=== PATIENT | female | born 1965 | race Caucasian/White ===

== ENCOUNTER → 2016-07-27 | Outpatient (CLI) | payer BC | END | disposition home or self-care (01) | LOC: LABWHC1 08:32 | PROVIDERS: ATTEND Obstetrics & Gynecology | DX: E78.5 Hyperlipidemia, unspecified (principal) | CPT/HCPCS: 36415; 80061; 84439; 84443 ==

== ENCOUNTER → 2016-08-02 | Outpatient (CLI) | payer BC ==
--- NOTE | 2016-08-05 09:23 | MM ---
Reason for exam: screening (asymptomatic). Last mammogram was performed 2 years and 9 months ago. History: Family history of breast cancer in maternal cousin at age 22. Benign US left CoreBiopsy of the left breast, October 02, 2006. Taking hormonal contraceptives for 18 years beginning at age 25. Physical Findings: A clinical breast exam by your physician is recommended on an annual basis and results should be correlated with mammographic findings. MG Screening Mammo w CAD Bilateral CC and MLO view(s) were taken. Prior study comparison: November 10, 2013, bilateral MG screening mammo w CAD. July 02, 2010, bilateral digital screening mammo w/CAD. The breast tissue is heterogeneously dense. This may lower the sensitivity of mammography. Finding: There are typically benign calcifications in both breasts. No significant changes in finding since November 10, 2013 and July 02, 2010. ASSESSMENT: Benign, BI-RAD 2 RECOMMENDATION: Routine screening mammogram of both breasts in 1 year.
== END | disposition home or self-care (01) ==
LOC: RADMAMWWP 16:41
PROVIDERS: ATTEND Obstetrics & Gynecology
DX: Z12.31 Encounter for screening mammogram for malignant neoplasm of breast (principal)

== ENCOUNTER → 2017-07-08 | Outpatient (CLI) | payer BC ==
[2017-07-08 18:24] LABS: T4, Free (Free Thyroxine) 0.59 ng/dL (0.78-2.19)
== END | disposition home or self-care (01) ==
LOC: LABWHC1 16:53
PROVIDERS: ATTEND Obstetrics & Gynecology
DX: E03.9 Hypothyroidism, unspecified (principal); N91.2 Amenorrhea, unspecified
CPT/HCPCS: 36415; 82670; 83001; 84439; 84443

== ENCOUNTER → 2018-02-18 | Outpatient (CLI) | payer BC ==
--- NOTE | 2018-02-19 14:01 | MM ---
Reason for exam: screening (asymptomatic). Last mammogram was performed 1 year and 7 months ago. History: Family history of breast cancer in maternal cousin at age 22. Benign US left CoreBiopsy of the left breast, October 02, 2006. Taking hormonal contraceptives for 18 years beginning at age 25. Physical Findings: A clinical breast exam by your physician is recommended on an annual basis and results should be correlated with mammographic findings. MG Screening Mammo w CAD Bilateral CC and MLO view(s) were taken. Prior study comparison: August 02, 2016, bilateral MG screening mammo w CAD. November 10, 2013, bilateral MG screening mammo w CAD. The breast tissue is heterogeneously dense. This may lower the sensitivity of mammography. There is no discrete abnormality. ASSESSMENT: Negative, BI-RAD 1 RECOMMENDATION: Routine screening mammogram of both breasts in 1 year.
== END | disposition home or self-care (01) ==
LOC: RADMAMWWP 07:15
PROVIDERS: ATTEND Obstetrics & Gynecology
DX: Z12.31 Encounter for screening mammogram for malignant neoplasm of breast (principal)
CPT/HCPCS: 77067

== ENCOUNTER → 2019-11-24 | Outpatient (CLI) | payer BC ==
--- NOTE | 2019-11-25 10:44 | MM ---
Reason for exam: screening (asymptomatic). Last mammogram was performed 1 year and 9 months ago. History: Family history of breast cancer in maternal cousin at age 22. Benign US left CoreBiopsy of the left breast, October 02, 2006. Took hormonal contraceptives for 18 years beginning at age 25. Physical Findings: A clinical breast exam by your physician is recommended on an annual basis and results should be correlated with mammographic findings. MG Screening Mammo w CAD Bilateral CC and MLO view(s) were taken. Prior study comparison: February 18, 2018, bilateral MG screening mammo w CAD. August 02, 2016, bilateral MG screening mammo w CAD. The breast tissue is heterogeneously dense. This may lower the sensitivity of mammography. Stable grouped calcifications anteriorly on the right. No significant changes when compared with prior studies. ASSESSMENT: Negative, BI-RAD 1 RECOMMENDATION: Routine screening mammogram of both breasts in 1 year.
== END | disposition home or self-care (01) ==
LOC: RADMAMWWP 07:27
PROVIDERS: ATTEND Obstetrics & Gynecology
DX: Z12.31 Encounter for screening mammogram for malignant neoplasm of breast (principal)
CPT/HCPCS: 77067

== ENCOUNTER → 2020-07-07 | Outpatient (CLI) | payer BC ==
--- NOTE | 2020-07-07 16:02 | US ---
EXAMINATION TYPE: US thyroid st tissue head/neck DATE OF EXAM: 07/07/2020 COMPARISON: NONE CLINICAL HISTORY: E03.9 Hypothyroidism. Takes thyroid medication. GLAND SIZE: Right Lobe: 2.7 x 0.8 x 1.6 cm Overall Parenchyma: heterogenous Left Lobe: 2.5 x x1.0 x 1.2 cm Overall Parenchyma: heterogeneous Isthmus Thickness: 0.2 cm NODULES RIGHT: # of nodules measured on right: no discreet nodule is seen LEFT: # of nodules measured on left: no discreet nodule is seen ISTHMUS: # of nodules measured in the isthmus: 0 Bilateral neck scanned: no evidence of lymphadenopathy. IMPRESSION: No distinct abnormality seen.
== END | disposition home or self-care (01) ==
LOC: RADUSWWP 14:47
PROVIDERS: ATTEND Family Medicine
DX: E03.9 Hypothyroidism, unspecified (principal)
CPT/HCPCS: 76536

== ENCOUNTER → 2022-02-06 | Outpatient (CLI) | payer BC ==
--- NOTE | 2022-02-07 06:58 | BD ---
EXAMINATION TYPE: Axial Bone Density DATE OF EXAM: 02/06/2022 COMPARISON: NONE CLINICAL HISTORY: 56 years year old Female. ICD-10 CODE: M95.1 POST MENOPAUSAL SYMPTOMS Height: 5 FT 3 IN Weight: 187 FRAX RISK QUESTIONS: Alcohol (3 or more units per day): NO Family History (Parent hip fracture): NO Glucocorticoids (More than 3mos): NO (Ex: prednisone, prednisolone, methylprednisolone, dexamethasone, and hydrocortisone). History of Fracture in Adulthood: NO Secondary Osteoporosis: 1. Type 1 Diabetes: NO 2. Hyperthyroidism: NO 3. Menopause before 45: NO 4. Malnutrition: NO 5. Chronic liver disease: NO Rheumatoid Arthritis: NO Current Tobacco Use: NO RISK FACTORS HISTORY OF: Surgery to Spine/Hip(right/left)/Wrist (right/left): NO Family History of Osteoporosis: NO Active: YES Diet low in dairy products/other sources of calcium: NO Postmenopausal woman: AGE 52 Take estrogen and/or progesterone medications: NO Lost more than 2 inches in height since high school: NO Frequent falls: NO Poor Health: GOOD Hyperparathyroidism: NO Adrenal Insufficiency: NO MEDICATIONS: Thyroid Medications: YES Which medication: LEVOTHYROXINE How Long: APPROX 2 YEARS Additional Medications: LEVOTHYROXINE Additional History: EXAM MEASUREMENTS: Bone mineral densitometry was performed using the [employer] System. Bone mineral density as measured about the Lumbar spine is: ----- L1-L4(G/cm2): 1.135 T Score Values are as follows: ----- L1: -0.4 ----- L2: -1.0 ----- L3: -0.5 ----- L4: 0.1 ----- L1-L4: -0.4 BASELINE Bone mineral density about the R hip (g/cm2): 0.822 Bone mineral density about the L hip (g/cm2): 0.894 T Score values are as follows: -----R Neck: -1.6 -----L Neck: -1.0 -----R Total: -1.0 -----L Total: -0.4 BASELINE FRAX%s: The graph provided illustrates a 6.5 % chance for a major osteoporotic fx and a 0.5 % chance for the hips probability for fx in 10 years time. IMPRESSION: Osteopenia (T Score between -2.5 and -1). There is slightly increased risk of fracture and the patient may be considered for treatment. Re-Screen 2-5 years. NOTE: T-SCORE=SD OF THE YOUNG ADULT MEAN.
--- NOTE | 2022-02-07 08:39 | MM ---
Reason for Exam: Screening (asymptomatic). Last mammogram was performed 2 year(s) and 2 month(s) ago. Patient History: Menarche at age 14. First Full-Term at age 24. [employer]. Hormonal Contraceptives, starting at age 25 for 18 years. 10/02/2006, Benign Core Biopsy on the left side. Maternal cousin had breast cancer, age 22. Mother had breast cancer at or over age 50. Risk Values: Sharlene 5 year model risk: 2.7%. NCI Lifetime model risk: 17.6%. Prior Study Comparison: 08/02/2016 Bilateral Screening Mammogram, [facility]. 02/18/2018 Bilateral Screening Mammogram, [facility]. 11/24/2019 Bilateral Screening Mammogram, [facility]. Tissue Density: The breast tissue is heterogeneously dense. This may lower the sensitivity of mammography. Findings: Analyzed By CAD. There is no suspicious group of microcalcifications or new suspicious mass in either breast. No significant change from prior exams. Overall Assessment: Negative, BI-RAD 1 Management: Screening Mammogram of both breasts in 1 year. A clinical breast exam by your physician is recommended on an annual basis and results should be correlated with mammographic findings. Electronically signed and approved by: Donnell Jay D.O.
== END | disposition home or self-care (01) ==
LOC: RADMAMWWP 15:51
PROVIDERS: ATTEND Obstetrics & Gynecology
DX: Z12.31 Encounter for screening mammogram for malignant neoplasm of breast (principal); M85.89 Other specified disorders of bone density and structure, multiple sites; Z78.0 Asymptomatic menopausal state; Z80.3 Family history of malignant neoplasm of breast
CPT/HCPCS: 77063; 77067; 77080

== ENCOUNTER → 2022-04-13 | Outpatient (CLI) | payer BC ==
[2022-04-13 19:56] LABS: ALT 43 U/L (8-44); AST 25 U/L (13-35); African American GFR (CKD) 96.2 (60.0-200.0); Albumin 4.2 g/dL (3.8-4.9); Albumin/Globulin Ratio 1.83 (1.60-3.17); Alkaline Phosphatase 76 U/L (41-126); BUN/Creat Ratio 10.63 Ratio (12.00-20.00); Blood Urea Nitrogen 8.5 mg/dL (9.0-27.0); Calcium 9.2 mg/dL (8.7-10.3); Carbon Dioxide 26.5 mmol/L (20.0-27.5); Chloride 109 mmol/L (96-109); Chol/HDL Ratio 3.84 Ratio; Globulin 2.3 g/dL (1.6-3.3); Glucose 91 mg/dL (70-110); Iron 64 ug/dL (50-170); LDL Cholesterol,Calculated 129.5 mg/dL (0.0-131.0); Potassium 4.2 mmol/L (3.5-5.5); Sodium 145 mmol/L (135-145); Total Protein 6.5 g/dL (6.2-8.2)
== END | disposition home or self-care (01) ==
LOC: LABWHC1 11:52
PROVIDERS: ATTEND Family Medicine
DX: Z00.01 Encounter for general adult medical examination with abnormal findings (principal); E03.9 Hypothyroidism, unspecified; D50.9 Iron deficiency anemia, unspecified
CPT/HCPCS: 36415; 80053; 80061; 83540; 84439; 84481

== ENCOUNTER → 2024-04-22 | Outpatient (CLI) | payer BC ==
--- NOTE | 2024-04-25 14:51 | MM ---
Reason for Exam: Screening (asymptomatic). Last mammogram was performed 2 year(s) and 3 month(s) ago. Patient History: Menarche at age 14. First Full-Term at age 24. Postmenopausal. [employer]kenazi [employer]. Hormonal Contraceptives, starting at age 25 for 18 years. 10/02/2006, Benign Core Biopsy on the left side. Maternal cousin had breast cancer, age 22. Mother had breast cancer, age 70. Risk Values: Sharlene 5 year model risk: 2.9%. NCI Lifetime model risk: 16.9%. Prior Study Comparison: 02/18/2018 Bilateral Screening Mammogram, [facility]. 11/24/2019 Bilateral Screening Mammogram, [facility]. 02/06/2022 Bilateral MG 3D screening mammo w/cad, [facility]. Tissue Density: The breasts are heterogeneously dense, which may obscure small masses. Findings: Analyzed By CAD. The pattern is symmetrical. There are developing punctate calcifications within the upper outer right breast. Additional workup is recommended. Left breast:No suspicious groups of microcalcifications, spiculated or lobular masses, architectural distortion or other secondary signs of malignancy are mammographically apparent. Overall Assessment: Incomplete: need additional imaging evaluation, BI-RAD 0 Management: Diagnostic Mammogram of the right breast. A negative mammogram report should not preclude additional follow up of suspicious palpable abnormalities. Patient should continue monthly self breast exam. A clinical breast exam by your physician is recommended on an annual basis and results should be correlated with mammographic findings. Note on Sharlene scores and lifetime risk: 1. A Sharlene score greater than 3% is considered moderate risk. If this is the case, consider specialist referral to assess eligibility for a risk reducing agent. 2. If overall lifetime risk for the development of breast cancer is 20% or higher, the patient may qualify for future screening with alternating mammogram and breast MRI. [facility], , 04/25/2024 2:48 PM. Electronically signed and approved by: Jatin Vasquez D.O. Radiologis
== END | disposition home or self-care (01) ==
LOC: RADMAMWWP 16:23
PROVIDERS: ATTEND Family Medicine
DX: Z12.31 Encounter for screening mammogram for malignant neoplasm of breast (principal); Z78.0 Asymptomatic menopausal state; Z80.3 Family history of malignant neoplasm of breast; R92.333 Mammographic heterogeneous density, bilateral breasts
CPT/HCPCS: 77063; 77067

== ENCOUNTER → 2024-05-05 | Outpatient (CLI) | payer BC ==
--- NOTE | 2024-05-05 14:43 | MM ---
Reason for Exam: Additional evaluation requested from abnormal screening. Last screening mammogram was performed less than 1 month ago. Patient History: Menarche at age 14. First Full-Term at age 24. Postmenopausal. [employer]azi [employer]ism. Hormonal Contraceptives, starting at age 25 for 18 years. 10/02/2006, Benign Core Biopsy on the left side. Maternal cousin had breast cancer, age 22. Mother had breast cancer, age 70. Risk Values: Sharlene 5 year model risk: 2.9%. NCI Lifetime model risk: 16.9%. Tissue Density: Right: The breasts are heterogeneously dense, which may obscure small masses. Findings: Analyzed By CAD. A few upper inner quadrant grouped punctate microcalcifications middle depth become less conspicuous on the magnification views. Six-month follow-up is recommended. Overall Assessment: Probably benign, BI-RAD 3 Management: Diagnostic Mammogram of the right breast in 6 months. Results were given to the patient verbally at the time of exam. Patient should continue monthly self-breast exams. A clinical breast exam by your physician is recommended on an annual basis. This exam should not preclude additional follow-up of suspicious palpable abnormalities. Note on Sharlene scores and lifetime risk: 1. A Sharlene score greater than 3% is considered moderate risk. If this is the case, consider specialist referral to assess eligibility for a risk reducing agent. 2. If overall lifetime risk for the development of breast cancer is 20% or higher, the patient may qualify for future screening with alternating mammogram and breast MRI. [facility], , 05/05/2024 2:40 PM. Electronically signed and approved by: Griffin Bhagat M.D. Radiologist
== END | disposition home or self-care (01) ==
LOC: RADMAMWWP 14:18
PROVIDERS: ATTEND Family Medicine
DX: R92.8 Other abnormal and inconclusive findings on diagnostic imaging of breast (principal); Z78.0 Asymptomatic menopausal state; Z80.3 Family history of malignant neoplasm of breast; R92.331 Mammographic heterogeneous density, right breast
CPT/HCPCS: 77061; 77065